=== PATIENT | female | born 1960 | race Caucasian/White ===

== ENCOUNTER 2019-01-07 11:16 | Outpatient (CLI) | payer BC ==
--- NOTE | 2019-01-07 11:49 | Diagnostic Imaging Report ---
PATIENT MR#: [id number] PATIENT PATIENT NAME: JUSTICE ANDRES DATE OF : 1960 REFERRING PHYSICIAN: HERMINIO GARCIA EXAM DATE: 01/07/2019 ACCESSION NUMBER: [id number] EXAM DESCRIPTION: FOOT 3 VIEWS OR MORE Exam: Left foot 3 views Indication: CHRONIC LEFT FOOT PAIN (Hx) / Note marilyn e : 01/07/2019 11:33:20 AM User : Gavin Clemente CHRONIC LEFT FOOT PAIN --- (DICOM Hx) (DICOM Hx) Findings: No acute fracture, subluxation, or dislocation is identified. There are degenerative changes of the f irst metatarsophalangeal joint space. There is a spur off the plantar aspect of the calcaneus. If clinical symptoms persist follow up examination may be warranted to exclude an occult process. Impression: degenerative changes Calcaneal spur Read by: Dr. Evens Connors Transcribed by: Transcribed Date: Electronically signed by: Dr. Evens Connors Date signed: 01/07/2019 11:48:53 AM
== END 2019-01-07 11:26 ==
LOC: RAD 11:16
PROVIDERS: ATTEND Podiatrist Foot & Ankle Surgery
DX: G89.29 Other chronic pain (principal); M79.672 Pain in left foot
CPT/HCPCS: 73630